=== PATIENT | female | born 1980 | race Caucasian/White ===

== ENCOUNTER 2019-07-17 09:24 | Emergency (ER) | payer OTHER ==
[~2019-07-17] VITALS: Ht 175.3 cm; Wt 83.9 kg
[~2019-07-17 09:24] MED LIST: BACTRIM DS TAB1 EACH PO; NOHOMEMEDICATIONS
[2019-07-17 09:57] LABS: ABSOLUTE NEUTROPHILS 8.1 thou/uL (1.4-8.2); BASOPHILS 0.6 % (0.0-2.0); EOSINOPHILS 0.9 % (0.0-3.0); HEMATOCRIT 39.1 % (37.0-47.0); HEMOGLOBIN 12.9 gm/dL (12.0-15.0); LYMPHOCYTES 17.5 % (24.0-44.0); MCH 27.7 pg (26.0-34.0); MCV 83.9 fL (80.0-100.0); PLATELET COUNT 352 thou/uL (150-400); RBC 4.66 mil/uL (4.20-5.00); WBC 10.8 thou/uL (4.0-11.0)
[2019-07-17 10:04] LABS: ANION GAP 11 mmol/L (7-16); BUN 12 mg/dL (7-18); CALCIUM 9.8 mg/dL (8.5-10.1); CHLORIDE 101 mmol/L (98-107); CO2 24 mmol/L (21-32); CREATININE 0.8 mg/dL (0.6-1.0); GLUCOSE 95 mg/dL (74-106); POTASSIUM 4.1 mmol/L (3.5-5.1); SODIUM 136 mmol/L (136-145)
[2019-07-17 10:11] LABS: ALBUMIN 3.6 g/dL (3.4-5.0); DIRECT BILIRUBIN < 0.1 mg/dL (<0.1-0.2); LIPASE 137 U/L (73-393); SGOT 20 U/L (15-37); SGPT 41 U/L (30-65); TOTAL BILIRUBIN 0.2 mg/dL (<0.1-1.0); TOTAL PROTEIN 7.2 g/dL (6.4-8.2)
[2019-07-17] MEDS ORDERED: NORCO 5-325 TA1 EAC1 PO (14:08)
[2019-07-17 14:15] VITALS: BP 121/88
== END 2019-07-17 14:15 | disposition home or self-care (01) ==
LOC: ER 09:24
PROVIDERS: Emergency Medicine
DX: K80.20 Calculus of gallbladder without cholecystitis without obstruction (principal); Z98.51 Tubal ligation status; Z87.891 Personal history of nicotine dependence